=== PATIENT | female | born 1975 | race Caucasian/White ===

== ENCOUNTER → 2018-02-26 15:34 | Outpatient (CLI) | payer SELFPAY ==
[2018-02-26 18:00] LABS: HCG Quantitative /Beta subunit 151430 mIU/mL
== END ==
PROVIDERS: Visit Provider Specialist
DX: O26.851 Spotting complicating pregnancy, first trimester (principal); Z34.90 Encounter for supervision of normal pregnancy, unspecified, unspecified trimester
CPT/HCPCS: 36415; 84702

== ENCOUNTER → 2018-02-28 12:16 | Outpatient (CLI) | payer SELFPAY ==
[2018-02-28 14:43] LABS: HCG Quantitative /Beta subunit 122430 mIU/mL
== END ==
PROVIDERS: PCP Specialist; Visit Provider Specialist
DX: O26.851 Spotting complicating pregnancy, first trimester (principal); Z34.90 Encounter for supervision of normal pregnancy, unspecified, unspecified trimester; Z34.81 Encounter for supervision of other normal pregnancy, first trimester
CPT/HCPCS: 36415; 84702; 87077; 87086

== ENCOUNTER 2018-03-10 22:51 | Emergency (ER) | payer SELFPAY ==
--- NOTE | 2018-03-10 23:04 | ED.GENADULT ---
HPI - General Adult General Chief complaint: OB/Uterine Contractions Stated complaint: 11 wks pain cramping' Time Seen by Provider: 03/10/18 23:04 Source: patient Mode of arrival: ambulatory Limitations: no limitations History of Present Illness HPI narrative: Patient is a 42-year-old at approximately 11 weeks EGA with a known intrauterine demise from ultrasound by Dr. Haider on Monday. Patient stated that time they had a discussion about whether not to go home and let her body handle this on its own versus medication assistance verses a D&C. The patient opted to go home. She stated that approximately 2 hr prior to arrival here in the emergency department she started to have cramping in quite a bit of lower abdominal discomfort. She denied any vaginal bleeding or vaginal discharge. She stated that she still did not want a D&C however she was concerned about the amount of bleeding that could potentially happened. Related Data Home Medications Medication Instructions Recorded Confirmed No Known Home Medications 03/09/18 03/09/18 Allergies Allergy/AdvReac Type Severity Reaction Status Date / Time No Known Drug Allergies Allergy Unverified 03/09/18 11:06 Review of Systems Constitutional Denies fever(s) Gastrointestinal Gastrointestinal: Reports abdominal pain, Denies change in bowel habits, Reports cramping, Reports nausea and Denies vomiting Genitourinary Denies dysuria and Denies vaginal discharge Musculoskeletal Denies myalgias and Denies arthralgias Integumentary/Breasts Denies lesions and Denies rash Hematologic/Lymphatic Denies easy bleeding and Denies easy bruising [facility] Medical History Healthy adult (Acute) Surgical History No pertinent past surgical history (Acute) Social History Smoking Status: Never smoker Exam Initial Vital Signs Initial Vital Signs: Vital Signs Temperature 98.4 F 03/10/18 23:11 Pulse Rate 90 03/10/18 23:11 Respiratory Rate 22 03/10/18 23:11 Blood Pressure 123/76 03/10/18 23:11 Pulse Oximetry 97 03/10/18 23:11 Const General: cooperative, healthy appearing, No comfortable ( Uncomfortable appearing), well groomed and No acute distress Orientation: alert, awake and oriented x3 Resp Effort & Inspection: normal respiratory effort GI Inspection: non-distended Palpation: tender Skin Lesions: no lesions Rashes: no rashes Neuro General: alert, awake and oriented x3 Psych Appearance: grossly normal and well kempt Course Orders Ordered: ED Orders 03/10/18 23:18 ABO RH Type Stat HCG Quantitative Stat 03/10/18 23:20 Urine Culture Stat Urine Microscopic Stat Discontinued Medications Hydrocodone Bitart/Acetaminophen (Vicodin Prepack) 1 bottle MISC SEEINSTR ONE Stop: 03/11/18 00:24 Last Admin: 03/11/18 00:48 Dose: 1 bottle Hydrocodone Bitart/Acetaminophen ([place] 5/325) 1 tab PO NOW ONE Stop: 03/11/18 00:24 Last Admin: 03/11/18 00:49 Dose: 1 tab Misoprostol (Cytotec) 800 mcg PO NOW ONE Stop: 03/11/18 00:25 Last Admin: 03/11/18 00:49 Dose: 800 mcg Vital Signs - 8 hr 03/10/18 23:11 03/11/18 01:02 Temperature 98.4 F Pulse Rate 90 80 Respiratory Rate 22 Blood Pressure 123/76 119/75 Pulse Oximetry 97 Medical Decision Making Lab Data Lab Results 03/10/18 03/10/18 03/10/18 Range/Units 23:18 23:18 23:20 HCG, Quant 76972 mIU/mL Urine RBC 0-1/hpf (0-5/HPF) Urine WBC 1-5/hpf (0-5/HPF) Ur Squamous Epith Cells 1-5 /hpf Amorphous Sediment 2+ Urine Bacteria Many (>30) H (None) Ur Culture Indicated? Specimen cultured Micro UA Comment Not Reportable Blood Type O Negative Urine Dip Bedside Urine Glucose Negative Bedside Urine Bilirubin - Negative Bedside Urine Ketone + 15 Urine Specific [place] 1.015 Bedside Urine Occult Blood +/- Bedside Urine pH 7.0 Bedside Urine Protein - Negative Bedside Urine Urobilinogen - Negative Bedside Urine Nitrite + Positive Bedside Urine Leukocytes - Negative Esterase Point of care testing: Urine Dip Bedside Urine Glucose Negative Bedside Urine Bilirubin - Negative Bedside Urine Ketone + 15 Urine Specific [place] 1.015 Bedside Urine Occult Blood +/- Bedside Urine pH 7.0 Bedside Urine Protein - Negative Bedside Urine Urobilinogen - Negative Bedside Urine Nitrite + Positive Bedside Urine Leukocytes - Negative Esterase MDM Narrative Medical decision making narrative: patient was fairly uncomfortable here in the emergency department however was not having any vaginal bleeding. We again discussed her options. I contacted Dr. Haider who was the provider who saw her on Monday. The patient did not want a D and C. she did state that she was okay with taking the side attack. She was given Cytotec per recommendation of Dr. Haider. We did discuss the course of the miscarriage. Informed her that she was going to have pain and cramping and vaginal bleeding until she passed the products of conception. I did inform her that given her gestational age of 11 weeks that she may have quite a bit of bleeding. I informed her that after she passes the products this cramping and bleeding should improve significantly. I informed her that if the bleeding did not improve or she got chest pain, fevers, lightheadedness or pain that was not controlled that she did need to return to the emergency department for evaluation. She was given a [place] here in the ER. Was sent home with a prepack of [place]. Patient was Rh negative here in the ER. She was not having any bleeding. She was not given RhoGAM here in the ER. I did send an e-mail to Dr. Haider informing her of the ABO Rh status asking her to discuss the possibility of RhoGAM with the patient. Patient was also nitrite positive in her urine. She was not complaining of any urinary symptoms However she was obviously concerned about the impending miscarriage in also abdominal pain. This urine was cultured. I also informed Dr. Haider in the mail about this finding. The patient and and sister were at bedside for all these discussions. They all expressed understanding and agreement with plan. Discharge Plan Departure Patient Disposition: Home Clinical Impression: Spontaneous in first trimester Discharge Date/Time: 03/11/18 01:03 Interventions: ED Discharge Assessment Last Done: 03/11/18 01:02 Instructions: Dealing With Miscarriage, DI for Miscarriage Activity Restrictions/Additional Instructions: you should expect quite a bit of cramping and bleeding. Unfortunately We cannot give you a definitive time frame as to when this process will be complete. once you do pass tissue you should expect the cramping and pain and bleeding to improve significantly. If this does not improve you do need to return to the emergency department. Return for other worsening symptoms to include fevers, worsening abdominal pain, bleeding that will not stop, or any other concerning symptoms. Call Dr. Haider on Monday for follow-up. Prescriptions: No Action No Known Home Medications RF: 0
[2018-03-10 23:11] VITALS: BP 123/76; PULSE 90; RESP 22; TEMP 36.9; O2SAT 97; BMI 19.2
[2018-03-10 23:34] LABS: Amorphous Sediment Urine 2+; Bacteria Urine Many (>30); RBC Urine 0-1/HPF (0-5/HPF); Squamous Epithelial Cell Urine 1-5 /HPF; WBC Urine 1-5/HPF (0-5/HPF)
[2018-03-10 23:38] LABS: Culture Indicated Urine Specimen Cultured
[2018-03-11 00:05] LABS: HCG Quantitative /Beta subunit 12734 mIU/mL
[2018-03-11] MEDS: HYDROCODONE/ACET 5/325 PREPACK 1 BOTTLE MISC (00:48)
[2018-03-11] MEDS: miSOPROStol 100 MCG TABLET 800 MCG PO (00:49)
[2018-03-11] MEDS: HYDROCODONE/ACET 5/325 TABLET 1 TAB PO (00:49)
[2018-03-11 01:02] VITALS: BP 119/75; PULSE 80
--- NOTE | 2018-03-15 16:53 | PC.NURSE ---
called for pt follow up,no answer
== END 2018-03-11 01:03 | disposition home or self-care (01) ==
PROVIDERS: Emergency Provider Emergency Medicine; PCP Specialist
DX: O03.9 Complete or unspecified spontaneous abortion without complication (principal)
CPT/HCPCS: 36415; 81003; 81015; 84702; 86900; 86901; 87077; 87086; 99282; 99283

== ENCOUNTER 2021-09-09 18:53 | Emergency (ER) | payer OTHER, SELFPAY ==
[2021-09-09 19:01] VITALS: BP 119/56; PULSE 84; RESP 17; TEMP 36.6; O2SAT 98; BMI 18.4
[2021-09-09] MEDS: ONDANSETRON 4 MG ODT SL (19:49)
--- NOTE | 2021-09-10 00:27 | ED.HA ---
HPI - Headache General Chief Complaint: Headache Stated Complaint: vomiting, migraine, fever, can't eat or drink Time Seen by Provider: 09/10/21 00:11 Mode of arrival: Wheelchair History of Present Illness HPI Narrative: 46-year-old woman presents with a headache that is been present for 3 days associated with photophobia, nausea. She states that she has had migraines for the majority of her life they typically will very at the sites but frequently are preceded by an aura. They do tend to be related to her menstrual cycle she notices a week prior to her menses she tends to have a severe headache the entire week and a week after her menses similar findings. During her menses she notes that it is chronic dull headache which leaves only a week where she tends to have fewer headaches. She does take Tylenol and ibuprofen but relatively sparingly. She estimates maximum of 500 mg of Tylenol and 400 mg of ibuprofen a day. She has never been on migraine specific medication nor on prophylactic medications. She notes that she feels nauseated but has not actually vomited. She is not having chest pain, palpitations, abdominal pain, diarrhea, dysuria or flank pain. Related Data Home Medications Medication Instructions Recorded Confirmed prenat.vits,laurence,[id number] 1 tab PO DAILY 04/12/18 04/12/18 vaginal probiotic VAG 04/12/18 04/12/18 Previous Rx's Medication Instructions Recorded oxycodone-acetaminophen 5 mg-325 2 tab PO Q4-6H PRN #14 tab 04/12/18 mg tablet (Percocet) amitriptyline 25 mg tablet 25 mg PO BEDTIME #30 tab 09/10/21 sumatriptan succinate 50 mg tablet See Rx Instructions .ROUTE 09/10/21 (Imitrex) .COMPLEX #9 tab Allergies Allergy/AdvReac Type Severity Reaction Status Date / Time No Known Drug Allergies Allergy Unverified 03/23/18 16:01 Review of Systems Review of Systems Narrative: Remainder of complete review of systems is otherwise unremarkable except for that included in the HPI. Patient History Medical History (Updated 09/10/21 @ 02:15 by Toya Hamilton MD) Healthy adult Migraine Surgical History No pertinent past surgical history Social History Smoking Status: Never smoker Smoking Status: Never smoker Substance Use Type: marijuana Exam Initial Vital Signs Initial Vital Signs: Vital Signs Temperature 97.8 F 09/09/21 19:01 Pulse Rate 84 09/09/21 19:01 Respiratory Rate 17 09/09/21 19:01 Blood Pressure 119/56 L 09/09/21 19:01 Pulse Oximetry 98 09/09/21 19:01 General: Healthy appearing, with mild current pain from headache. Able to give a complete and coherent history. Well-nourished well-developed HEENT: Moist mucous membranes, normal sclera with reactive pupils, Respiratory: Lungs are clear to auscultation, no wheezing no rales no rhonchi. Full and symmetrical air movement Cardiac: Regular rate and rhythm no murmurs no bruits Abdomen: Soft, nontender, good bowel tones, no flank pain Skin: Warm and dry, no rashes Neurologic: Grossly neurologically intact with no obvious asymmetries or abnormalities Extremities: No trauma, well perfused Psych: Cooperative, appropriate insight and affect Course Orders Ordered: Discontinued Medications Dexamethasone (Dexamethasone 10 Mg/Ml Vial) 10 mg IV NOW ONE Stop: 09/10/21 00:28 Last Admin: 09/10/21 00:42 Dose: 10 mg Documented by: ARLEEN Diphenhydramine HCl (Diphenhydramine 50 Mg/Ml Vial) 25 mg IV NOW ONE Stop: 09/10/21 00:28 Last Admin: 09/10/21 00:42 Dose: 25 mg Documented by: ARLEEN Sodium Chloride (Normal Saline 0.9%) 1,000 mls @ 1,000 mls/hr IV BOLUS ONE Stop: 09/10/21 01:42 Last Infusion: 09/10/21 01:46 Dose: 0 mls/hr Documented by: Admin: 09/10/21 00:44 Dose: 1,000 mls/hr Documented by: ARLEEN Metoclopramide HCl (Metoclopramide 10 Mg/2 Ml Inj) 10 mg IV NOW ONE Stop: 09/10/21 00:28 Last Admin: 09/10/21 00:42 Dose: 10 mg Documented by: ARLEEN Ondansetron HCl (Ondansetron 4 Mg Odt) 4 mg SL NOW ONE Stop: 09/09/21 19:44 Last Admin: 09/09/21 19:49 Dose: 4 mg Documented by: ELI Vital Signs Vital signs: Vital Signs - 8 hr 09/09/21 19:01 Temperature 97.8 F Pulse Rate 84 Respiratory Rate 17 Blood Pressure 119/56 L Pulse Oximetry 98 MDM - Headache MDM Narrative Medical decision making narrative: 46-year-old woman presents with headache that is been present for over 3 days that resolves with fluids, steroids, Benadryl and Reglan. She has a history of migraines sound like they have been getting dramatically worse over the last 6 months. She has never been on migraine prophylaxis and is having enough headaches throughout the month that she fits criteria for chronic daily headache. She is willing to try any suggestions and does have an appointment with a new provider in a little over a week. Multiple recommendations after long discussion with the patient are reviewed in her discharge instructions below. At time of discharge she is essentially pain-free alert and appropriate with all questions answered. She is safe for home discharge Discharge Plan Departure Patient Disposition: Home Clinical Impression: Migraine Instructions: DI for Migraine Activity Restrictions/Additional Instructions: Thank you for coming in today I am glad that your headache is feeling better. Your given steroids, Reglan, Benadryl and fluids. For your migraine headaches that sound like they may actually make criteria for chronic daily headaches I am going to suggest a number of things. 1. Make sure you keep your appointment with your new primary care provider and review everything else with her 2. Stop all Tylenol and ibuprofen for at least 2 weeks 3. Make sure that you drinking 8 glasses of water a day 4. Avoid caffeine and anything else that obviously triggers her migraines 5. Try starting amitriptyline, 25 mg at night as a preventive medication. This medication can make you sleepy so I recommend taking it about 2 hours before bed so you do not feel groggy the next day. Can give you a dry mouth and make you bit dizzy for the 1st couple of days. It takes some time to figure out if it is working. I recommend that you try it for at least 2 weeks before you decide it is not going to work for you. 6. Please keep track of your migraines in terms of frequency, intensity, anything that may have triggered it, medications that you are taking including prescription medications and where you are in your menstrual cycle. 7. The next time he have an acute onset migraine with aura, going to recommend you try 50 mg of oral sumatriptan/Imitrex. The recommendation is to take it as soon as you sense the aura. You can repeated in 2 hours if you have not seen significant effect. Ideally, you will not need more than 9 doses maximum and a month. Prescriptions have been sent to [facility] If you have new or worsening symptoms, please feel free to return to the emergency department Prescriptions: New amitriptyline 25 mg tablet 25 mg PO BEDTIME Qty: 30 1RF sumatriptan succinate [Imitrex] 50 mg tablet See Rx Instructions .ROUTE .COMPLEX Qty: 9 0RF Rx Instructions: take 1 tab at onset of headache; if no relief may repeat 1 tab after at least 2 hrs; max = 4 tabs/24 hr No Action prenat.vits,laurence,[id number] tablet 1 tab PO DAILY 0RF vaginal probiotic VAG 0RF oxycodone-acetaminophen [Percocet] 5-325 mg tablet 2 tab PO Q4-6H PRN (Reason: pain) Qty: 14 0RF Referrals: Stormy Haider MD [Primary Care Provider] -
[2021-09-10] MEDS: DEXAMETHASONE 10 MG/ML VIAL IV (00:42)
[2021-09-10] MEDS: METOCLOPRAMIDE 10 MG/2 ML INJ IV (00:42)
[2021-09-10] MEDS: diphenhydrAMINE 50 MG/ML VIAL 25 MG IV (00:42)
[2021-09-10] MEDS: SODIUM CHLORIDE 0.9% 1,000 ML 1000 ML IV (00:44)
[2021-09-10 02:10] VITALS: BP 103/51; PULSE 74; RESP 20; O2SAT 98
== END 2021-09-10 02:38 | disposition home or self-care (01) ==
PROVIDERS: Emergency Provider Emergency Medicine; PCP Specialist
DX: G43.909 Migraine, unspecified, not intractable, without status migrainosus (principal)
CPT/HCPCS: 96361; 96374; 96375; 99284; J1100; J1200; J2765